=== PATIENT | female | born 2000 | race Hispanic/Latino ===

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

== ENCOUNTER 2021-05-08 22:16 | Emergency (ER) | payer OTHER ==
[~2021-05-08] VITALS: Ht 157.5 cm; Wt 65.8 kg
[~2021-05-08 22:16] MED LIST changes: +AUGMENTIN 875-1 EACH PO
== END 2021-05-08 23:00 | disposition home or self-care (01) ==
LOC: ER 22:54
DX: O26.891 Other specified pregnancy related conditions, first trimester (principal); R10.30 Lower abdominal pain, unspecified; E11.9 Type 2 diabetes mellitus without complications
CPT/HCPCS: 99282